=== PATIENT | male | born 1975 | race Caucasian/White ===

== ENCOUNTER 2018-03-21 13:42 | Emergency (ER) | payer MEDICAID ==
[2018-03-21 14:08] VITALS: BP 125/87
[2018-03-21] MEDS ORDERED: Ibuprofen TAB* 600 MG PO ONE (14:50)
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
--- NOTE | 2018-03-21 14:56 | RAD ---
Indication: Dropped hammer on LEFT fifth toe. Comparison: No relevant prior exams available on the [facility] PACS for comparison. Technique: AP, lateral, and oblique views LEFT foot. 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 Negative for fracture or malalignment. Mild soft tissue swelling at the level of the fifth metatarsal phalangeal joint. IMPRESSION: #. Mild soft tissue swelling. Negative for fracture.
== END 2018-03-21 15:40 | disposition home or self-care (01) ==
LOC: UCEAST 13:42
DX: S99.922A Unspecified injury of left foot, initial encounter (principal); F17.210 Nicotine dependence, cigarettes, uncomplicated; W22.8XXA Striking against or struck by other objects, initial encounter; Y92.9 Unspecified place or not applicable
CPT/HCPCS: 99202; A9270-GY; G0463

== ENCOUNTER 2019-03-11 14:20 | Emergency (ER) | payer OTHER ==
[2019-03-11] MEDS ORDERED: fentaNYL* 50 MCG/ML 2 ML VIAL (100 MCG VIAL) IV SLOW PU ONE ×2 (14:43→16:02)
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
[2019-03-11] MEDS ORDERED: Iodixanol* (CONTRAST) 320 MG/ML 100 ML SDV IV ONE (15:00)
[2019-03-11 15:54] LABS: ABS Lymphocytes 0.5 10^3/ul (1.0-4.8); ABS Monocytes 0.8 10^3/ul (0-0.8); ABS Neutrophils 17.8 10^3/ul (1.5-7.7); Eosinophil % 0.2 %; Hematocrit 58 % (42-52); Hemoglobin 19.4 g/dL (14.0-18.0); Lymphocyte % 2.7 %; Mean Corpuscular HGB Conc 33 g/dL (31-36); Mean Corpuscular Hemoglobin 34 pg (27-31); Mean Corpuscular Volume 102 fL (80-94); Mean Platelet Volume 7.7 fL (7.4-10.4); Platelet Count 190 10^3/uL (150-450); Red Cell Distribution Width 15 % (10-15); White Blood Count 19.2 10^3/uL (3.5-10.8)
[2019-03-11 16:04] VITALS: BP 135/92
[2019-03-11 16:10] LABS: ALT 43 U/L (7-52); AST 33 U/L (13-39); Albumin 4.3 g/dL (3.2-5.2); Albumin/Globulin Ratio 1.5 (1-3); Alkaline Phosphatase 79 U/L (34-104); Anion Gap 5 mmol/L (2-11); BUN/Creatinine Ratio 14.1 (8-20); Blood Urea Nitrogen 12 mg/dL (6-24); CO2 Carbon Dioxide 28 mmol/L (22-32); Calcium 9.2 mg/dL (8.6-10.3); Chloride 104 mmol/L (101-111); EGFR African American 120.2 (>60); EGFR Non-African American 99.3 (>60); Globulin 2.9 g/dL (2-4); Glucose 95 mg/dL (70-100); Potassium 4.1 mmol/L (3.5-5.0); Sodium 137 mmol/L (135-145); Total Protein 7.2 g/dL (6.4-8.9)
[2019-03-11 17:08] LABS: Alcohol < 10 mg/dL (<10)
[2019-03-11] MEDS ORDERED: Morphine 4 MG/ML VIAL (1 ml) 4 MG/ML VIAL IV ONE (17:11)
== END 2019-03-11 17:25 | disposition short-term general hospital (02) ==
LOC: ED 14:20
DX: S32.029A Unspecified fracture of second lumbar vertebra, initial encounter for closed fracture (principal); S20.219A Contusion of unspecified front wall of thorax, initial encounter; S80.211A Abrasion, right knee, initial encounter; S00.81XA Abrasion of other part of head, initial encounter; R11.10 Vomiting, unspecified; V49.9XXA Car occupant (driver) (passenger) injured in unspecified traffic accident, initial encounter; Y92.410 Unspecified street and highway as the place of occurrence of the external cause; F17.210 Nicotine dependence, cigarettes, uncomplicated
CPT/HCPCS: 36415; 70450; 71260; 72125; 72128; 72131; 74177; 80053; 80320; 84484; 85025; 96374; 96375; 96376; 99284; G0480; J2270; J3010; Q9967

== ENCOUNTER 2024-02-28 11:03 | Inpatient (IN) ==
[~2024-02-28 11:03] MED LIST: Buffered Lidocaine 1% SYRIN 1 ml INTRADERM ONE; Ertapenem 1 GM in NS 0.9% 50 ML BAG IVPB SCH; Haloperidol 5 mg/ml SDV IV/IM 5 MG/ML AMP IV SLOW PU PRN; Lidocaine 4 MG/ML IV PREMIX 200 MG/50 ML BAG IV SCH; Naloxone 0.4 mg VIAL 0.4 mg/ml 1 ml VIAL IV PRN; fentaNYL 100 mcg/2 ml 50 MCG/ML VIAL IV PRN
[2024-02-28] MEDS ORDERED: Rocuronium 50 mg VIAL 10 mg/ml 5 ml VIAL (50 mg) ONE ×2 (11:37→14:52)
[2024-02-28] MEDS ORDERED: Midazolam 2 mg/2 ml VIAL 1 mg/ml 2 ml VIAL (2 mg) ONE (11:37)
[2024-02-28] MEDS ORDERED: fentaNYL 250 mcg/5 ml 50 MCG/ML 5 ml VIAL (250 MCG) ONE (11:37)
[2024-02-28] MEDS ORDERED: Propofol 10 MG/ML 20 ML BTL ONE (11:37)
[2024-02-28] MEDS ORDERED: Lidocaine 2% PF 5 ML VIAL ONE (11:37)
[2024-02-28] MEDS ORDERED: ceFAZolin 2 GM PREMIX 2 GM/50 ML BAG ONE (11:58)
[2024-02-28 11:59] LABS: Rapid COVID-19 Molecular Undetected (Undetected)
[2024-02-28] MEDS ORDERED: Scopolamine 1 mg/72hr PATCH ONE (12:02)
[2024-02-28] MEDS: Lactated Ringers 1000 ml BAG 1,000 ML IV SCH ×2 (12:13→21:54)
[2024-02-28] MEDS: Scopolamine 1 mg/72hr PATCH TRANSDERM ONE (12:13)
[2024-02-28] MEDS ORDERED: Lidocaine 4 MG/ML IV PREMIX 2,000 MG/500 ML BAG IV ONE (14:53)
[2024-02-28] MEDS ORDERED: Naloxone 0.4 mg VIAL 0.4 mg/ml 1 ml VIAL IV PRN (14:58)
[2024-02-28] MEDS ORDERED: KETAMINE HCL 10 MG/ML 20 ml VIAL (200 MG) ONE (14:58)
[2024-02-28] MEDS ORDERED: Bupivacaine 0.25% EPI 200,000 30 ML SDV ONE (15:22)
[2024-02-28] MEDS ORDERED: Sevoflurane BOTTLE ONE (16:48)
[2024-02-28] MEDS ORDERED: HYDROmorphone 0.5 MG/0.5 ML SYRINGE ONE ×2 (17:02→18:08)
[2024-02-28] MEDS ORDERED: Acetaminophen IV 1 GM/100ML 1,000 MG/100 ML BAG IV ONE ×2 (18:40→20:24)
[2024-02-28] MEDS ORDERED: Dexmedetomidine 200 mcg/2 ml 2 ml VIAL (200 mcg) ONE (19:06)
[2024-02-28] MEDS ORDERED: Ondansetron 4 mg VIAL 2 MG/ML 2 ml VIAL ONE ×2 (19:40→20:39)
[2024-02-28] MEDS ORDERED: HYDROmorphone 1 MG/1 ML SYRINGE IV SLOW PU PRN (20:16)
[2024-02-28] MEDS ORDERED: fentaNYL 100 mcg/2 ml 50 MCG/ML VIAL ONE ×2 (20:17→20:38)
[2024-02-28] MEDS: fentaNYL 100 mcg/2 ml 50 MCG/ML VIAL IV PRN (20:19)
[2024-02-28] MEDS ORDERED: HYDROmorphone 1 MG/1 ML SYRINGE ONE (20:23)
[2024-02-28] MEDS: Acetaminophen IV 1 GM/100ML 1,000 MG/100 ML BAG IV SCH (20:29)
[2024-02-28] MEDS: Lidocaine 4 MG/ML IV PREMIX 200 MG/50 ML BAG IV SCH (20:37)
[2024-02-28] MEDS: Ondansetron 4 mg VIAL 2 MG/ML 2 ml VIAL IV PRN (20:40)
[2024-02-28] MEDS ORDERED: Haloperidol 5 mg/ml SDV IV/IM 5 MG/ML AMP ONE (20:48)
[2024-02-28] MEDS: Haloperidol 5 mg/ml SDV IV/IM 5 MG/ML AMP IV SLOW PU PRN (20:48)
[2024-02-28] MEDS: HYDROmorphone 1 MG/1 ML SYRINGE IV SLOW PU PRN (20:50)
[2024-02-29] MEDS: Acetaminophen IV 1 GM/100ML 1,000 MG/100 ML BAG IV SCH (03:28)
[2024-02-29] MEDS: Buffered Lidocaine 1% SYRIN 1 ml INTRADERM ONE (07:32)
[2024-02-29 08:09] LABS: ABS Basophils 0.1 10^3/uL (0.0-0.1); ABS Lymphocytes 1.2 10^3/uL (1.0-4.8); ABS Monocytes 1.4 10^3/uL (0.0-1.1); ABS Neutrophils 14.5 10^3/uL (1.5-7.6); ABS Nucleated RBC 0.01 10^3/ul; Hematocrit 44.2 % (38-53); Hemoglobin 15.1 g/dL (13.2-16.3); Lymphocyte % 7.2 %; Mean Corpuscular Hemoglobin 34.5 pg (27-33); Mean Corpuscular Hgb Conc 34.1 g/dL (31-36); Mean Platelet Volume 8.1 fL (7.5-11.2); Platelet Count 238 10^3/uL (150-450); Red Blood Count 4.38 10^6/uL (4.06-5.63); Red Cell Distribution Width 13.6 % (12-17); White Blood Count 17.2 10^3/uL (3.6-10.2)
[2024-02-29] MEDS ORDERED: HYDROmorphone 1 MG/1 ML SYRINGE IV SLOW PU PRN (08:30)
[2024-02-29 08:32] LABS: Creatinine, Serum 0.83 mg/dL (0.67-1.17); Magnesium 1.7 mg/dL (1.9-2.7); Potassium 4.6 mmol/L (3.5-5.0); eGFR CKD-EPI 109.3 (>60)
[2024-02-29] MEDS: Enoxaparin 40 MG/0.4 ML SYR SUBCUT SCH (09:06)
[2024-02-29] MEDS: Magnesium Sulfate 2 gm BAG 2 GM/50 ML BAG IVPB ONE (09:07)
[2024-02-29] MEDS: Calcium Carb (TUMS) 500 mg CHEW TAB PO PRN (13:47)
[2024-02-29] MEDS ORDERED: Acetaminophen IV 1 GM/100ML 1,000 MG/100 ML BAG IV SCH (14:00)
[2024-02-29] MEDS: HYDROcodone/ACETAMIN 5/325 mg TAB PO PRN (15:48)
[2024-03-01 06:25] LABS: Hematocrit 42.5 % (38-53); Hemoglobin 14.7 g/dL (13.2-16.3); Mean Corpuscular Hemoglobin 34.6 pg (27-33); Mean Corpuscular Hgb Conc 34.5 g/dL (31-36); Mean Corpuscular Volume 100.4 fL (80-97); Mean Platelet Volume 8.4 fL (7.5-11.2); Platelet Count 235 10^3/uL (150-450); Red Blood Count 4.23 10^6/uL (4.06-5.63); Red Cell Distribution Width 13.6 % (12-17); White Blood Count 15.5 10^3/uL (3.6-10.2)
[2024-03-01 06:48] LABS: Calcium 9.1 mg/dL (8.6-10.3); Creatinine, Serum 0.84 mg/dL (0.67-1.17); Potassium 4.3 mmol/L (3.5-5.0); eGFR CKD-EPI 108.9 (>60)
[2024-03-01 08:19] LABS: ABS Basophils 0.1 10^3/uL (0.0-0.1); ABS Lymphocytes 2.3 10^3/uL (1.0-4.8); ABS Monocytes 1.6 10^3/uL (0.0-1.1); ABS Neutrophils 11.4 10^3/uL (1.5-7.6); Eosinophil % 0.3 %; Lymphocyte % 14.9 %
[2024-03-02] MEDS: Enoxaparin 40 MG/0.4 ML SYR SUBCUT SCH (10:30)
[2024-03-02 13:54] VITALS: BP 130/79
== END 2024-03-02 16:10 | disposition home or self-care (01) | DRG 221 ==
LOC: SSU 11:03 → AA 14:55 → SSU 21:35
PROVIDERS: ADMIT Surgery; ATTEND Surgery